=== PATIENT | female | born 1980 | race Caucasian/White ===

== ENCOUNTER 2016-06-02 16:42 | Emergency (ER) | payer OTHER ==
[~2016-06-02] VITALS: Ht 157.5 cm; Wt 78.0 kg
[~2016-06-02 16:42] MED LIST: NO CURRENT MEDS
[2016-06-02 16:48] VITALS: Ht 157.5 cm; Wt 78.0 kg
--- NOTE | 2016-06-02 18:21 | ERD ---
ER Documentation Chief Complaint Date/Time DATE: 06/02/16 Chief Complaint Dysuria, back pain HPI The patient is a 35-year-old female who presents the Emergency Department with complaint of dysuria and back discomfort. The patient reports that 3 days ago she developed dysuria, urinary frequency, urgency and pressure-like suprapubic abdominal discomfort radiating to the back. She denies any hematuria. Denies fevers, chills, nausea, vomiting. Denies vaginal bleeding or new vaginal discharge. Denies any history of similar symptoms. Last menstrual period was , and normal. The patient states that she has been taking Advil for the abdominal/back discomfort, which does provide short-term, but complete pain relief. However, several hours after taking the medication, her pain returns. She rates her current pain as 5/10. She denies any new rashes. Denies chest pain, palpitations, shortness of breath. Denies any diarrhea. ROS All systems reviewed and are negative except as per history of present illness. Medications Home Meds Active Scripts Ibuprofen* (Motrin*) 600 Mg Tab, 600 MG PO Q6, #30 TAB Prov:TERENCE CALLE PA-C 06/02/16 Phenazopyridine Hcl* (Pyridium*) 200 Mg Tab, 200 MG PO TID Y for URINARY PAIN for 2 Days, #6 TAB Prov:TERENCE CALLE PA-C 06/02/16 Cephalexin* (Keflex*) 500 Mg Capsule, 500 MG PO QID for 7 Days, CAP Prov:TERENCE CALLE PA-C 06/02/16 Reported Medications [No Current Meds] No Conflict Check 10/09/09 Allergies Allergies: Coded Allergies: No Known Drug Allergies (Verified Allergy, Unknown, 09/25/13) PMhx/Soc History of Surgery: Yes () Anesthesia Reaction: No Hx Neurological Disorder: No Hx Respiratory Disorders: No Hx Cardiac Disorders: No Hx Psychiatric Problems: No Hx Miscellaneous Medical Probl: No Hx Alcohol Use: No Hx Substance Use: No Hx Tobacco Use: No Physical Exam Vitals Vital Signs Date Time Temp Pulse Resp B/P Pulse Ox O2 Delivery O2 Flow Rate FiO2 06/02/16 16:48 98.1 68 20 122/69 99 Physical Exam GENERAL: Well-developed, well-nourished, female, in no acute distress. HEENT: Head is normocephalic, atraumatic. No scleral pallor or icterus. Pupils equal, round and reactive to light. Conjunctiva pink. Moist mucous membranes. NECK: Supple. Full range of motion. RESPIRATORY: Lungs are clear to auscultation bilaterally. Equal breath sounds. Normal expiratory effort. CARDIOVASCULAR: Regular rate and rhythm. S1 and S2 normal. GASTROINTESTINAL: Abdomen is soft, non-tender, and non-distended. No guarding, no rebound tenderness. Normal bowel sounds. No abdominal bruits. No gross peritonitis. Negative Rovsing's sign. Negative Mota's sign. No tenderness at McBurney's point. FLANK: No CVA tenderness. No mass or swelling. No rashes. BACK: No midline tenderness. EXTREMITIES: No clubbing, cyanosis, or edema. Normal skin perfusion. Moving all extremities. Muscle tone is normal. No focal swelling or erythema. NEUROLOGIC: The patient is alert, awake, and oriented x 3. No focal neurologic deficits. Speech is normal. INTEGUMENT: Skin is intact. Warm and dry. No rashes, no petechiae present. Normal turgor. PSYCHIATRIC: Cooperative. Appropriate. Result Diagram: 06/02/16185006/02/161850 Results 24 hrs Laboratory Tests Test 06/02/16 18:51 06/02/16 18:53 Alanine Aminotransferase (ALT/SGPT) 31IU/L Albumin 4.1g/dl Albumin/Globulin Ratio 1.10 Alkaline Phosphatase 132IU/L Anion Gap 18 Aspartate Amino Transf (AST/SGOT) 31IU/L Basophils # 0.010^3/ul Basophils % 0.3% Blood Urea Nitrogen 12mg/dl Calcium Level 9.3mg/dl Carbon Dioxide Level 22mmol/L Chloride Level 103mmol/L Creatinine 0.77mg/dl Direct Bilirubin 0.00mg/dl Eosinophils # 0.110^3/ul Eosinophils % 0.8% Globulin 3.70g/dl Glucose Level 252mg/dl Hematocrit 36.1% Hemoglobin 12.3g/dl Indirect Bilirubin 0.0mg/dl Lipase 41U/L Lymphocytes # 2.110^3/ul Lymphocytes % 17.6% Mean Corpuscular Hemoglobin 30.3pg Mean Corpuscular Hemoglobin Concent 34.0g/dl Mean Corpuscular Volume 88.9fl Mean Platelet Volume 9.4fl Monocytes # 0.610^3/ul Monocytes % 5.2% Neutrophils # 9.110^3/ul Neutrophils % 76.1% Nucleated Red Blood Cells # 0.010^3/ul Nucleated Red Blood Cells % 0.0/100WBC Platelet Count 25176^3/UL Potassium Level 3.7mmol/L Red Blood Count 4.0610^6/ul Red Cell Distribution Width 13.8% Sodium Level 139mmol/L Total Bilirubin 0.0mg/dl Total Protein 7.8g/dl White Blood Count 11.910^3/ul Bedside Urine Blood Trace-intact Bedside Urine Glucose (UA) Negative Bedside Urine Ketones (LAB) Negative Bedside Urine Leukocyte Esterase (L 2+ Bedside Urine Nitrite (LAB) Negative Bedside Urine Protein (LAB) 1+ Bedside Urine pH (LAB) 6.5 Current Medications Medications (Trade) Dose Ordered Sig/Rachael Route PRN Reason Start Time Stop Time Status Last Admin Dose Admin Acetaminophen/ Hydrocodone Bitart ([place] (5/325)) 1 tab ONCE ONCE PO 06/02/16 18:30 06/02/16 18:31 DC 06/02/16 18:31 Ceftriaxone Sodium (Rocephin) 1 gm ONCE ONCE IM 06/02/16 20:00 06/02/16 20:01 DC 06/02/16 20:08 Lidocaine (Xylocaine 1% (Mdv) 20 ml) 20 ml ONCE ONCE SC 06/02/16 20:00 06/02/16 20:01 DC 06/02/16 20:08 Procedures/MDM This is a 35-year-old female who presents with dysuria, frequency, urgency and suprapubic abdominal discomfort. Differentials that were considered today include cystitis, pyelonephritis, interstitial cystitis, genital herpes, atrophic vaginitis, pelvic inflammatory disease, nephrolithiasis, cervicitis, urinary retention, urinary incontinence, , ectopic , urinary tract infection, vulvovaginitis, appendicitis, gastroenteritis, perinephric or renal abscess, constipation, ovarian torsion, gastritis, neoplastic disease, among other emergent medical conditions in my thought process. I have low clinical suspicion for acute or surgical abdomen as the patient is non-toxic and well appearing, with stable vital signs, and presents with no tenderness in any of the four abdominal quadrants. 2+ urine leukocyte esterase and trace urine hemoglobin were noted on urinalysis, concerning for a likely urinary tract infection. Urine culture is sent. Negative urine . She has not had fever or any constitutional symptoms, no flank pain or CVA tenderness, and therefore I doubt pyelonephritis. However, Rocephin 1 gram administered in the ED for coverage. No new vaginal discharge or pelvic pain, and therefore I doubt cervicitis, PID, TOA. After rest, the patient reports no new complaints. At this time, the patient will be sent home with a prescription for Ibuprofen, Keflex and Pyridium as treatment for the urinary tract infection and symptoms, and strict return precautions for signs of deteriorating or worsening condition. The patient is advised to follow up with her primary care provider in 2-3 days for reevaluation and further management, or return to the ER sooner for any new or worsening symptoms. Other reasons to return to the ER sooner include worsening abdominal pain, persistent nausea or vomiting, persistent high fevers greater than 100.4 F, or any other signs of deteriorating condition. I shared my medical decision making and plan with the patient at length and in great detail, and the patient verbally understands and agrees with the plan for further observation and care as an outpatient. At the time of discharge all questions were answered. Departure Diagnosis: Primary Impression: Acute cystitis with hematuria Condition: Stable Patient Instructions: Understanding Urinary Tract Infections (UTIs), Urinary Tract Infections in Women Additional Instructions: Llame al doctor MAANA y bal bethany LETICIA PARA DENTRO DE 2-3 BLISS.Dgale a la secretaria que nosotros le instruimos hacer esta leticia.Avise o llame si clemens condicin se empeora antes de la leticia. Regresa aqui si peor o no mejor. TERENCE CALLE PA-C Jun 02, 2016 18:20
[2016-06-02] MEDS ORDERED: HYDROCODONE/APAP (5/325) TAB PO ONE (18:30)
[2016-06-02 18:50] LABS: URINE BLOOD (Dip) POC Trace-intact (NEGATIVE)
[2016-06-02 19:07] LABS: BASOPHILS % 0.3 % (0.0-2.0); EOSINOPHILS # 0.1 10^3/ul (0.0-0.5); EOSINOPHILS % 0.8 % (0.0-7.0); HEMATOCRIT 36.1 % (37.0-47.0); HEMOGLOBIN 12.3 g/dl (12.0-16.0); LYMPHOCYTES # 2.1 10^3/ul (0.8-2.9); LYMPHOCYTES % 17.6 % (15.0-51.0); MEAN CORPUSCULAR HEMOGLOBIN 30.3 pg (29.0-33.0); MEAN CORPUSCULAR VOLUME 88.9 fl (82.0-101.0); MEAN PLATELET VOLUME 9.4 fl (7.4-10.4); MONOCYTE # 0.6 10^3/ul (0.3-0.9); MONOCYTES % 5.2 % (0.0-11.0); NEUTROPHIL # 9.1 10^3/ul (1.6-7.5); NEUTROPHILS % 76.1 % (39.0-77.0); PLATELET COUNT 268 10^3/UL (140-440); RED BLOOD COUNT 4.06 10^6/ul (4.20-5.40); RED CELL DISTRIBUTION WIDTH 13.8 % (11.5-14.5); UNCORRECTED WBC 11.9 10^3/ul (4.8-10.8); WHITE BLOOD COUNT 11.9 10^3/ul (4.8-10.8)
[2016-06-02 19:10] LABS: CONDITION 1
[2016-06-02 19:11] LABS: ALBUMIN 4.1 g/dl (3.3-4.9)
[2016-06-02 19:12] LABS: POTASSIUM 3.7 mmol/L (3.5-5.1)
[2016-06-02 19:14] LABS: CREATININE 0.77 mg/dl (0.44-1.00)
[2016-06-02 19:15] LABS: ALBUMIN/GLOBULIN RATIO 1.1; CALCIUM 9.3 mg/dl (8.4-10.2); TOTAL PROTEIN 7.8 g/dl (6.1-8.1)
[2016-06-02] MEDS ORDERED: PHEN-538 PO (19:40)
[2016-06-02] MEDS ORDERED: IBUP-1542 PO (19:40)
[2016-06-02] MEDS ORDERED: CEPH-443 PO (19:40)
[2016-06-02] MEDS ORDERED: LIDOCAINE 1% (MDV) 20 ML INJ SC ONE (20:00)
[2016-06-02] MEDS ORDERED: CEFTRIAXONE 1 GM INJ IM ONE (20:00)
== END 2016-06-02 20:32 | disposition home or self-care (01) ==
LOC: FTE 16:42
DX: N30.01 Acute cystitis with hematuria (principal)
CPT/HCPCS: 36415; 80053; 81003; 83690; 85025; 87086; 96372; J0696; Z7502; Z7610

== ENCOUNTER 2017-10-02 23:58 | Emergency (ER) | END 2017-10-03 01:46 | disposition home or self-care (01) ==